=== PATIENT | female | born 1945 | race Caucasian/White ===

== ENCOUNTER 2017-12-16 21:17 | Emergency (ER) | payer MEDICARE ==
[~2017-12-16] VITALS: Ht 157.5 cm; Wt 76.2 kg
[2017-12-16 21:47] VITALS: BP 171/73
[2017-12-16] MEDS ORDERED: KETOROLAC TROMETH 60MG/2ML VIAL IM ONE (23:15)
== END 2017-12-17 00:40 | disposition home or self-care (01) ==
LOC: ER 21:17
DX: S22.000A Wedge compression fracture of unspecified thoracic vertebra, initial encounter for closed fracture (principal); W19.XXXA Unspecified fall, initial encounter; Y93.89 Activity, other specified; Y99.8 Other external cause status; Y92.89 Other specified places as the place of occurrence of the external cause
CPT/HCPCS: 72125; 72128; 72131; 96372; 99284; J1885